=== PATIENT | female | born 1995 | race Caucasian/White ===

== ENCOUNTER 2016-06-10 22:15 | Emergency (ER) | payer OTHER ==
[~2016-06-10] VITALS: Ht 154.9 cm; Wt 51.0 kg
[2016-06-10 22:21] VITALS: TEMP 36.8; Ht 154.9 cm; Wt 51.0 kg
[2016-06-10] MEDS ORDERED: MULT-513 PO (22:54)
[2016-06-10] MEDS ORDERED: SODIUM CHLORIDE 0.9% 1000ML 1,000 ML IV ONE (23:00)
[2016-06-10] MEDS ORDERED: PANTOprazole INJ 40 MG in SYRINGE 0 ML IV ONE (23:00)
[2016-06-10] MEDS ORDERED: ONDANSETRON INJ 2 MG/ML 2 ML VIAL IV STA (23:08)
[2016-06-10] MEDS ORDERED: ONDANSETRON INJ 2 MG/ML 2 ML VIAL ONE (23:09)
[2016-06-10 23:12] LABS: BASO % 0.8 %; BASO ABS # 0.03 K/uL (0-0.2); COMPLETE YES; EOS % 4.1 %; HEMATOCRIT 40.2 % (37-47); LYMPH % 8.1 %; LYMPH ABS # 0.32 K/uL (1.2-3.4); MEAN CELL VOLUME 87.4 fL (80-100); MEAN CORPUSCULAR HEMOGLOBIN 28.9 pg (25-34); MEAN CORPUSCULAR HGB CONC 33.1 g/dl (32-36); MEAN PLATELET VOLUME 8.7 fL (7.4-10.4); MONO % 12.4 %; NEUT % 74.6 %; PLATELET COUNT 219 K/uL (130-400); WHITE BLOOD COUNT 3.94 K/uL (4.8-10.8)
[2016-06-10 23:29] LABS: ALT/SGPT 19 U/L (12-78); AST/SGOT 15 U/L (15-37); BLOOD UREA NITROGEN 13 mg/dl (7-18); BUN/CREATININE RATIO 16.7 (10-20); CALCIUM 9.6 mg/dl (8.5-10.1); CARBON DIOXIDE 30 mmol/L (21-32); CHLORIDE 105 mmol/L (98-107); CREATININE 0.75 mg/dl (0.60-1.20); GLUCOSE 108 mg/dl (70-99); POTASSIUM 3.7 mmol/L (3.5-5.1); SODIUM 143 mmol/L (136-145)
[2016-06-10 23:40] LABS: URINE APPEARANCE CLOUDY (CLEAR); URINE BILIRUBIN NEG (NEG); URINE COLOR YELLOW; URINE EPITHELIAL CELL AUTO >30 /lpf (0-5); URINE NITRITE NEG (NEG); URINE PH 6.5 (4.5-7.5); URINE SPECIFIC GRAVITY 1.018 (1.000-1.030); UROBILINOGEN NEG (NEG); ZZUR CULT IF INDIC CLEAN CATCH YES
[2016-06-10 23:40] LABS: ALB/GLOB RATIO 1.2 (0.9-2); ALKALINE PHOSPHATASE 79 U/L (45-117); C-REACTIVE PROTEIN < 0.29 mg/dl (0-0.29)
[2016-06-10 23:41] LABS: MANUAL MICROSCOPIC REQUIRED? NO; REVIEW REQ? NO
[2016-06-11] MEDS ORDERED: NITR-5 PO (01:06)
[2016-06-11] MEDS ORDERED: MACROBID 100MG HOME PACK 1 EA VIAL PO ONE (01:15)
[2016-06-11 01:19] VITALS: BP 101/58; PULSE 74; O2SAT 99
--- NOTE | 2016-06-11 05:43 | EMERGENCY ROOM VISIT NOTE ---
History First contact with patient: 22:39 Chief Complaint: ABDOMINAL PAIN Stated Complaint: BLOATING, NAUSEA, STOMACH CRAMPS Nursing Triage Summary: pt c/o generalized abd pain for approx 2 weeks. pt reports cramping and bloating pains. states she was having difficulty urinating a week ago, but states that has resolved. reports constipation, also resolved today. pt hx of chrons. reports she had a baby 5 weeks ago. History of Present Illness The patient is a 20 year old female who presents to the Emergency Room with complaints of generalized abdominal pain for the past 2 weeks. The patient describes her pain as a cramping and bloating sensation. Her pain seems to worsen with eating, but is not distinctly in the upper abdomen. The patient has a history of Crohn's disease and has an upcoming appointment with GI about one week. The patient states that she had an uncomplicated delivery of a healthy child 5 weeks ago, and this was why she was not on Crohn's medication. The patient does not have reports of fever or chills. She is nauseated without vomiting. No vaginal drainage, discharge, or bleeding. She does report some urinary frequency without back pain. She does not have additional complaints. Review of Systems More than 10 systems were reviewed and otherwise negative with the exception of history of present illness. Past Medical/Surgical History History of Crohn's Family History No pertinent family history Social History Smoking Status: Never Smoker Housing Status: lives with family Current/Historical Medications Scheduled Multivitamins/Minerals (Mvi With Minerals), 1 TAB PO DAILY Nitrofurantoin Monohyd Macrocr (Macrobid), 100 MG PO BID Allergies Coded Allergies: No Known Allergies (Unverified , 06/10/16) Physical Exam Vital Signs Date Time Temp Pulse Resp B/P Pulse Ox O2 Delivery O2 Flow Rate FiO2 06/11/16 01:19 74 18 101/58 99 06/11/16 00:21 70 18 101/55 99 Room Air 06/10/16 22:21 36.8 80 18 132/72 95 Room Air Pain Rating (0-10): 7.0 Physical Exam VITALS: Vitals are noted on the nurse's note and reviewed by myself. Vital signs stable. GENERAL: Well-developed, well-nourished, white female, who is in no acute distress and resting comfortably. Patient is cooperative with the examination. HEAD: Normocephalic atraumatic. EARS: External ear normal. External auditory canals clear, tympanic membranes pearly bull without erythema or effusion bilaterally. EYES: Pupils equal round and reactive to light and accommodation. Conjunctivae without injection, sclerae without icterus. Extraocular movements intact. NOSE: Patent, turbinates without inflammation or discharge. MOUTH: Mucous membranes moist. Tonsils are not enlarged. Pharynx without erythema, blood, or exudate. Uvula midline. Airway patent. NECK: Supple without nuchal rigidity. No lymphadenopathy. No thyromegaly. Cervical spine is nontender. HEART: Regular rate and rhythm without murmurs gallops or rubs. LUNGS: Clear to auscultation bilaterally without wheezes, rales or rhonchi. No retractions or accessory muscle use. ABDOMEN: Positive normal bowel sounds x 4. Soft, nontender, without masses or organomegaly. No guarding or rebound tenderness. MUSCULOSKELETAL: No muscle atrophy, erythema, or edema noted. Full range of motion without joint tenderness in all extremities. Medical Decision & Procedures Laboratory Results 06/10/16 23:00 Red Blood Count 4.60, Mean Corpuscular Volume 87.4, Mean Corpuscular Hemoglobin 28.9, Mean Corpuscular Hemoglobin Concent 33.1, Mean Platelet Volume 8.7, Neutrophils (%) (Auto) 74.6, Lymphocytes (%) (Auto) 8.1, Monocytes (%) (Auto) 12.4, Eosinophils (%) (Auto) 4.1, Basophils (%) (Auto) 0.8, Neutrophils # (Auto ) 2.94, Lymphocytes # (Auto) 0.32, Monocytes # (Auto) 0.49, Eosinophils # (Auto ) 0.16, Basophils # (Auto) 0.03 06/10/16 23:00 Test 06/10/16 22:49 06/10/16 23:00 06/10/16 23:14 Urine Test NEG (NEG) White Blood Count 3.94 K/uL (4.8-10.8) Red Blood Count 4.60 M/uL (4.2-5.4) Hemoglobin 13.3 g/dL (12.0-16.0) Hematocrit 40.2 % (37-47) Mean Corpuscular Volume 87.4 fL (80-100) Mean Corpuscular Hemoglobin 28.9 pg (25-34) Mean Corpuscular Hemoglobin Concent 33.1 g/dl (32-36) Platelet Count 219 K/uL (130-400) Mean Platelet Volume 8.7 fL (7.4-10.4) Neutrophils (%) (Auto) 74.6 % Lymphocytes (%) (Auto) 8.1 % Monocytes (%) (Auto) 12.4 % Eosinophils (%) (Auto) 4.1 % Basophils (%) (Auto) 0.8 % Neutrophils # (Auto) 2.94 K/uL (1.4-6.5) Lymphocytes # (Auto) 0.32 K/uL (1.2-3.4) Monocytes # (Auto) 0.49 K/uL (0.11-0.59) Eosinophils # (Auto) 0.16 K/uL (0-0.5) Basophils # (Auto) 0.03 K/uL (0-0.2) RDW Standard Deviation 47.2 fL (36.4-46.3) RDW Coefficient of Variation 14.7 % (11.5-14.5) Immature Granulocyte % (Auto) 0.0 % Immature Granulocyte # (Auto) 0.00 K/uL (0.00-0.02) Erythrocyte Sedimentation Rate 7 mm/hr (0-21) Anion Gap 8.0 mmol/L (3-11) Est Creatinine Clear Calc Drug Dose 91.0 ml/min Estimated GFR () 133.9 Estimated GFR (Non- 115.6 BUN/Creatinine Ratio 16.7 (10-20) Calcium Level 9.6 mg/dl (8.5-10.1) Total Bilirubin 0.2 mg/dl (0.2-1) Aspartate Amino Transf (AST/SGOT) 15 U/L (15-37) Alanine Aminotransferase (ALT/SGPT) 19 U/L (12-78) Alkaline Phosphatase 79 U/L (45-117) C-Reactive Protein < 0.29 mg/dl (0-0.29) Total Protein 7.8 gm/dl (6.4-8.2) Albumin 4.3 gm/dl (3.4-5.0) Globulin 3.5 gm/dl (2.5-4.0) Albumin/Globulin Ratio 1.2 (0.9-2) Lipase 156 U/L (73-393) Thyroid Stimulating Hormone (TSH) 2.340 uIu/ml (0.300-4.500) Urine Color YELLOW Urine Appearance CLOUDY (CLEAR) Urine pH 6.5 (4.5-7.5) Urine Specific [place] 1.018 (1.000-1.030) Urine Protein NEG (NEG) Urine Glucose (UA) NEG (NEG) Urine Ketones NEG (NEG) Urine Occult Blood NEG (NEG) Urine Nitrite NEG (NEG) Urine Bilirubin NEG (NEG) Urine Urobilinogen NEG (NEG) Urine Leukocyte Esterase LARGE (NEG) Urine WBC (Auto) >30 /hpf (0-5) Urine RBC (Auto) 0-4 /hpf (0-4) Urine Hyaline Casts (Auto) 5-10 /lpf (0-5) Urine Epithelial Cells (Auto) >30 /lpf (0-5) Urine Bacteria (Auto) 1+ (NEG) Medications Administered Medications (Trade) Dose Ordered Sig/Tyler Route Start Time Stop Time Status Last Admin Dose Admin Sodium Chloride 1,000 ml @ 999 mls/hr Q1H1M ONCE IV 06/10/16 23:00 06/11/16 00:00 DC 06/10/16 23:13 999 MLS/HR Pantoprazole Sodium/Syringe (Protonix Inj/ Syringe) 10 ml @ 5 mls/min NOW ONCE IV 06/10/16 23:00 06/10/16 23:01 DC 06/10/16 23:34 5 MLS/MIN Ondansetron HCl (Zofran Inj) 4 mg NOW STAT IV 06/10/16 23:08 06/10/16 23:09 DC 06/10/16 23:12 4 MG Nitrofurantoin (Macrobid Homepack 100MG) 1 homepack UD ONCE PO 06/11/16 01:15 06/11/16 01:16 DC 06/11/16 01:15 1 HOMEPACK ED Course Physical exam and history were performed. Nursing notes and EMR were reviewed. Patient appears to have generalized abdominal bloating for the past 2 weeks. The patient does not have seen a few palpable tenderness on examination. She does have a history of Crohn's disease. She does not appear toxic on exam. IV access was established and labs were obtained. The patient was hydrated and medicated as above. Because of her symptoms I did elect to perform plain films. CT scan was considered but deferred pending workup. The patient's blood work is as above and was reviewed. She does not have a significant elevated white blood cell count, anemia, bandemia, or significant electrolyte imbalance. Lipase and transaminases are nondiagnostic. Her urine is suggestive of a UTI. Inflammatory markers were not elevated. X-ray was reviewed by myself and my attending and without significant findings. I discussed options of care with the patient and ultimately the patient's mother. The patient's symptoms certainly could be related to a urinary tract infection and recent delivery. The patient is not breast-feeding. Repeat abdominal examination does not reveal any significant tenderness, and we did discuss a CT scan, I elected against this. The patient will be given a course of Macrobid and asked to keep her GI appointment this week. She was otherwise invited back to the ER with any new, worsening, or concerning symptoms. The chart was completed utilizing [employer] Speech Voice Recognition Software. Grammatical errors, random word insertions, pronoun errors, and incomplete sentences are an occasional consequence of this system due to software limitations, ambient noise, and hardware issues. Any formal questions or concerns about the content, text, or information contained within the body of this dictation should be directly addressed to the provider for clarification. . Medical Decision Differential diagnosis: Etiologies such as appendicitis, diverticulitis, PUD, biliary pathology, UTI, pancreatitis, obstruction, mesenteric ischemia, aortic pathology, infections, inflammatory bowel disease, renal colic, as well as others were entertained. Impression Primary Impression: Urinary tract infection Additional Impression: Abdominal pain Departure Information Dispostion Home / Self-Care Condition GOOD Prescriptions Nitrofurantoin Monohyd Macrocr (Macrobid) 100 Mg Cap 100 MG PO BID for 7 Days, #14 CAP Prov: Vlad Linton PA-C 06/11/16 Forms HOME CARE DOCUMENTATION FORM, IMPORTANT VISIT INFORMATION Patient Instructions My [facility] Additional Instructions You were seen and evaluated today on an emergency basis only. This is not a substitute for, or an effort to provide, complete comprehensive medical care. It is not possible to recognize and treat all injuries or illnesses in a single emergency department visit. For this reason it is recommended that you followup with your primary care physician and GI specialist next week for ongoing care and evaluation. Take Macrobid 100 mg twice daily for the next 7 days. Drink plenty of fluids and remain well hydrated. You are welcome to return to the emergency department anytime with new, worsening, or concerning symptoms. Problem Qualifiers
--- NOTE | 2016-06-11 07:04 | DIAGNOSTIC IMAGING REPORT ---
PA CHEST RADIOGRAPH AND UPRIGHT AND SUPINE AP RADIOGRAPHS OF THE ABDOMEN CLINICAL HISTORY: Abdominal pain. COMPARISON STUDY: No previous studies for comparison. FINDINGS: Lung volumes are normal. Lungs are clear. There is no pneumothorax or pleural effusion. Cardiac size is normal. Mediastinal contours are normal. There is no evidence of pulmonary edema. There is no free air. Bowel gas pattern is normal. A few calcifications project over the lower pole of the left kidney. These measure up to 4 mm. These suggest calculi. No ureteral calculi are identified. IMPRESSION: 1. No free air or evidence of bowel obstruction. 2. Suspected left-sided nephrolithiasis. No ureteral calculi identified. 3. No acute cardiopulmonary findings. Electronically signed by: Federico Beltrán M.D. 06/11/2016 7:03 AM Dictated Date/Time: 06/11/2016 7:02 AM
--- NOTE | 2016-06-13 15:58 | Pharmacy Progress Note ---
ED Pharmacist Culture FollowUp Date of Service: June 13, 2016. Patient was seen in the ER on 06/10/16 for abdominal pain x 2 weeks, nausea/ vomiting, cramping and bloating w/ eating. Of note, she gave 5 days prior to ER visit. She was ultimately dx with UTI in ER and sent home w/ Rx for Macrobid 100mg BID x 7 days, however the urine cx did not grow an infectious organism - rather the culture grew gardnerella-like bacilli and was likely contaminated possibly w/ vaginal yue given the UA contained > 30 epis. She may not need abx therapy. Reviewed case w/ Dr Cook. Given the patient's complicated hx, the plan is to contact the patient to determine if her symptoms have improved on Macrobid or not. If the symptoms did improve, complete the course of Macrobid. If they did not, she is to have a repeat UA and Cx. I attempted to contact the patient w/ the number provided ( [phone]); however there was no answer but I did leave a voice message asking for a return call.
== END 2016-06-11 01:19 | disposition home or self-care (01) ==
LOC: C.EDB 22:17 → C.EDA 06-11 01:19
DX: N39.0 Urinary tract infection, site not specified (principal); R10.84 Generalized abdominal pain; K50.90 Crohn's disease, unspecified, without complications

== ENCOUNTER 2016-10-10 18:13 | Emergency (ER) | payer OTHER ==
[~2016-10-10] VITALS: Ht 162.6 cm; Wt 45.3 kg
[~2016-10-10 18:13] MED LIST: MULT-513 PO
[2016-10-10 18:16] VITALS: TEMP 36.6; Ht 162.6 cm; Wt 45.3 kg
--- NOTE | 2016-10-10 18:35 | EMERGENCY ROOM VISIT NOTE ---
History Report prepared by Isa: Brown Zhang Under the Supervision of: Dr. Matt Quintanilla M.D. First contact with patient: 18:24 Chief Complaint: MENTAL HEALTH EVALUATION Stated Complaint: HAVING SOME ISSUES EATING DISORDER History of Present Illness The patient is a 21 year old female who presents to the Emergency Room with complaints of a constant eating disorder beginning a few months ago. The patient states that every time she eats, she has to count the calories and fat no matter what. She reports that she had a baby 5 months ago, and she stays at home with it. The patient notes that she has a lot of help with the baby. She denies the chance of being again. The patient states that when her boyfriend makes plans to go out to eat, she will look up the lowest calorie meal. She reports that she saw a therapist for her symptoms towards the end of her , but it did not help because her boyfriend was there telling her she is perfect. The patient notes that she had these ideations before she was . She states that she does not want to live life counting calories, and she wants to get help. The patient denies suicidal and homicidal ideations. The patient's mother states she believes the patient has an eating disorder. She reports that patient tried to put on weight after the , but she was having trouble with food. The mother notes the patient was eating, but now she is to the point where she watches everything that goes into her mouth. Source of History: patient, parent (mother) Onset: few months ago Position: head Quality: other (eating disorder) Timing: constant Note: Associated symptoms: decreased appetite Denies: suicidal and homicidal ideations Review of Systems See HPI for pertinent positives & negatives. A total of 10 systems reviewed and were otherwise negative. Past Medical & Surgical Medical Problems: (1) Family History Patient reports no known family medical history. Social History Smoking Status: Never Smoker Housing Status: lives with family Current/Historical Medications No Active Prescriptions or Reported Meds Allergies Coded Allergies: No Known Allergies (Unverified , 10/10/16) Physical Exam Vital Signs Date Time Temp Pulse Resp B/P (MAP) Pulse Ox O2 Delivery O2 Flow Rate FiO2 10/10/16 19:14 104 18 89/60 100 10/10/16 18:16 36.6 99 16 116/79 94 Physical Exam GENERAL: Patient is a healthy-appearing well-nourished 21 year old female HEAD: Normocephalic atraumatic EYES: Ocular movements intact pupils equal and react to light OROPHARYNX mucous membranes are moist no exudates present no erythema or edema present NECK: Supple no nuchal rigidity CHEST: Good equal expansion LUNGS: Clear and equal to auscultation CARDIAC: Normal S1 and S2 ABDOMEN: Soft nontender no guarding BACK: No CVA tenderness EXTREMITIES: No pain upon palpation normal muscle strength in all groups no clubbing cyanosis or edema NEURO: Patient is following commands and answering questions appropriately. Alert and oriented x3 Cranial Nerves 2-12 grossly intact Medical Decision & Procedures ED Course 1825: Past medical records reviewed. The patient was evaluated in room A05. A complete history and physical examination was performed. 1852: Upon reexamination the patient has spoke with case management. I discussed results and treatment plan with the patient. She verbalizes agreement and understanding. The patient is ready for discharge. Medical Decision Differential diagnosis: Etiologies such as mood disorder, infection, hypoglycemia, electrolyte abnormalities, cardiac sources, intracerebral event, toxicologic, neurologic, as well as others were entertained. This is a 21-year-old female who presents emergency department complaining of eating disorder. The patient denies being suicidal or homicidal however has come for help. I do feel the patient is medically clear without requiring blood work. For this reason I did discuss the case with case management who will get the patient into see a therapist [place]. The patient again denies being suicidal or homicidal I feel safe enough to be discharged home. Impression Primary Impression: Mood disorder Scribe Attestation The scribe's documentation has been prepared under my direction and personally reviewed by me in its entirety. I confirm that the note above accurately reflects all work, treatment, procedures, and medical decision making performed by me. Departure Information Dispostion Home / Self-Care Prescriptions No Active Prescriptions or Reported Meds Referrals No Doctor, Assigned (PCP) Forms HOME CARE DOCUMENTATION FORM, IMPORTANT VISIT INFORMATION Patient Instructions My [facility] Additional Instructions Follow up with [facility] You have been examined and treated today on an emergency basis only. This is not a substitute for, or an effort to provide, complete comprehensive medical care. It is impossible to recognize and treat all injuries or illnesses in a single emergency department visit. It is therefore important that you follow up closely with your PCP. Call as soon as possible for an appointment. Thank you for your time and consideration. I look forward to speaking with you again soon. Please don't hesitate to call us if you have any questions.
[2016-10-10 19:14] VITALS: BP 89/60; PULSE 104; O2SAT 100
== END 2016-10-10 19:16 | disposition home or self-care (01) ==
LOC: C.EDB 18:14 → C.EDA 19:16
DX: F39 Unspecified mood [affective] disorder (principal)

== ENCOUNTER → 2017-05-25 | Outpatient (CLI) | payer OTHER | END | disposition home or self-care (01) | LOC: C.LABSPEC 16:26 | PROVIDERS: ATTEND Obstetrics & Gynecology | DX: O24.410 Gestational diabetes mellitus in pregnancy, diet controlled (principal) ==

== ENCOUNTER → 2017-06-01 | Outpatient (CLI) | payer OTHER ==
[2017-06-01 14:37] LABS: BASO % 0.2 %; BASO ABS # 0.01 K/uL (0-0.2); EOS ABS # 0.05 K/uL (0-0.5); HEMATOCRIT 39.7 % (37-47); HEMOGLOBIN 13.2 g/dL (12.0-16.0); LYMPH % 6.2 %; MEAN CELL VOLUME 84.8 fL (80-100); MEAN CORPUSCULAR HEMOGLOBIN 28.2 pg (25-34); MEAN CORPUSCULAR HGB CONC 33.2 g/dl (32-36); MEAN PLATELET VOLUME 8.4 fL (7.4-10.4); MONO % 7.5 %; MONO ABS # 0.36 K/uL (0.11-0.59); NEUT % 85.1 %; PLATELET COUNT 305 K/uL (130-400); RED CELL DISTRIBUTION WIDTH CV 14.4 % (11.5-14.5); WHITE BLOOD COUNT 4.82 K/uL (4.8-10.8)
== END | disposition home or self-care (01) ==
LOC: C.LAB1850 12:39
PROVIDERS: ATTEND Obstetrics & Gynecology
DX: O24.410 Gestational diabetes mellitus in pregnancy, diet controlled (principal)